=== PATIENT | female | born 1985 | race Caucasian/White ===

== ENCOUNTER 2025-07-20 13:05 | Inpatient (IN) | payer MEDICAID, OTHER ==
[~2025-07-20] VITALS: Ht 165.1 cm; Wt 98.0 kg
[2025-07-20 13:09] VITALS: O2SAT 99
[2025-07-20] MEDS: HALOPERIDOL LACTATE 5MG/ML VIAL IM ONE (13:28)
[2025-07-20] MEDS: DIPHENHYDRAMINE 50MG/ML VIAL IM ONE (13:28)
[2025-07-20] MEDS: LORAZEPAM 2MG/ML UD SYRINGE IM SCH (13:30)
[2025-07-20 14:26] LABS: HEMATOCRIT. 38.9 % (36.0-48.0); HEMOGLOBIN. 12.7 g/dL (12.0-16.0); MEAN PLATELET VOLUME 9.1 fl (7.4-10.4); PLATELET 270 x1000/uL (130-400); RED BLOOD CELL COUNT 4.18 mill/uL (4.2-5.4); RED CELL DISTRIBUTION WIDTH 13.1 % (11.6-14.6)
[2025-07-20 14:41] LABS: HCG SCREEN NEGATIVE
[2025-07-20 14:42] LABS: CREATININE 1.3 mg/dL (0.6-1.0)
[2025-07-20 14:43] LABS: ETHANOL BLOOD < 10 mg/dL (<10); PROTEIN TOTAL 7.6 g/dL (6.0-8.3); UREA NITROGEN BLOOD 12 mg/dL (9-23)
[2025-07-20 14:44] LABS: ASPARTATE AMINOTRANSFERASE 27 IU/L (<34); BILIRUBIN DIRECT 0.2 mg/dL (<=3.0)
[2025-07-20 14:45] LABS: BILIRUBIN TOTAL 0.7 mg/dL (0.1-1.0)
[2025-07-20 14:51] LABS: LYMPHOCYTES % MANUAL 6.0 % (20.0-60.0); MONOCYTES % MANUAL 8.0 % (2.0-8.0); NEUTROPHILS % MANUAL 86.0 % (45.0-75.0)
[2025-07-20 14:52] LABS: PLATELET ESTIMATE NORMAL
[2025-07-20] MEDS: AZITHROMYCIN 500MG/250ML 250 ML IV ONE (18:15)
[2025-07-20] MEDS: SODIUM CHLORIDE 0.9% (SEPSIS BOLUS) IV ONE (18:55)
[2025-07-20] MEDS: CEFTRIAXONE 1GM/50ML 50 ML IV ONE (19:01)
[2025-07-20 19:04] LABS: BASOPHILS % 0.2 % (0.0-2.0); EOSINOPHILS % 0.1 % (0.0-5.0); HEMATOCRIT. 39.3 % (36.0-48.0); HEMOGLOBIN. 12.8 g/dL (12.0-16.0); LYMPHOCYTES % 16.5 % (20.0-50.0); MEAN PLATELET VOLUME 8.9 fl (7.4-10.4); MONOCYTES % 7.5 % (2.0-8.0); NEUTROPHILS % 75.7 % (40.0-76.0); PLATELET 268 x1000/uL (130-400); RED BLOOD CELL COUNT 4.25 mill/uL (4.2-5.4); RED CELL DISTRIBUTION WIDTH 13.6 % (11.6-14.6)
[2025-07-20 19:07] LABS: CLARITY URINE CLOUDY (CLEAR); COLOR URINE DARK YELLOW (YELLOW); GLUCOSE URINE NEGATIVE (NEGATIVE); KETONES URINE 3+ (NEGATIVE); LEUKOCYTE ESTERASE URINE NEGATIVE (NEGATIVE); NITRITE URINE NEGATIVE (NEGATIVE); OCCULT BLOOD URINE TRACE (NEGATIVE); PH URINE 5.0 (4.5-8.0); PROTEIN URINE 1+ (NEGATIVE); SPECIFIC GRAVITY URINE 1.031 (1.005-1.030); UROBILINOGEN URINE 1.0 E.U./dL (0.2-1.0)
[2025-07-20 19:12] LABS: *AMPHETAMINES SCREEN URINE NEGATIVE (NEGATIVE); *BARBITURATES SCREEN URINE NEGATIVE (NEGATIVE); *BENZODIAZEPINES SCREEN URINE NEGATIVE (NEGATIVE); *COCAINE SCREEN URINE NEGATIVE (NEGATIVE); CANNABINOID URINE SCREEN NEGATIVE (NEGATIVE); ECSTASY MDMA SCREEN URINE NEGATIVE (NEGATIVE); METHADONE URINE SCREEN NEGATIVE (NEGATIVE); OPIATES URINE SCREEN NEGATIVE (NEGATIVE); PHENCYCLIDINE URINE SCREEN NEGATIVE (NEGATIVE)
[2025-07-20 19:20] LABS: CREATININE 1.1 mg/dL (0.6-1.0); UREA NITROGEN BLOOD 12 mg/dL (9-23)
[2025-07-20 19:21] LABS: PROTEIN TOTAL 7.2 g/dL (6.0-8.3)
[2025-07-20 19:22] LABS: ASPARTATE AMINOTRANSFERASE 39 IU/L (<34); BILIRUBIN DIRECT 0.2 mg/dL (<=3.0); BILIRUBIN TOTAL 0.7 mg/dL (0.1-1.0)
[2025-07-20 19:26] LABS: INR 1.0
[2025-07-20 19:33] LABS: TROPONIN I HIGH SENSITIVITY 121 ng/L (3.0-34)
[2025-07-20 20:44] LABS: BACTERIA URINE 4+; RBC URINE 0-2 /hpf (0-2); SQUAMOUS EPITHELIAL CELL URINE 2+ /lpf (RARE/1+)
[2025-07-20 20:45] LABS: WBC URINE 0-2 /hpf (0-2)
[2025-07-20 23:04] VITALS: BP 98/64; PULSE 70; RESP 16; TEMP 37.1408
[2025-07-20] MEDS ORDERED: ACETAMINOPHEN 325MG TABLET PO PRN (23:30)
[2025-07-20] MEDS ORDERED: LORAZEPAM 2MG/ML UD SYRINGE IV PRN (23:30)
[2025-07-21] VITALS: BP 95/54; PULSE 66; RESP 18; TEMP 36.6; O2SAT 100
[2025-07-21 04:00] VITALS: BP 96/59; PULSE 90; RESP 16; TEMP 36.7; O2SAT 98
[2025-07-21 07:44] LABS: PLATELET 243 x1000/uL (130-400); RED BLOOD CELL COUNT 3.61 mill/uL (4.2-5.4); RED CELL DISTRIBUTION WIDTH 13.3 % (11.6-14.6)
[2025-07-21 07:56] LABS: UREA NITROGEN BLOOD 11 mg/dL (9-23)
[2025-07-21 08:00] VITALS: BP 127/75; PULSE 72; RESP 16; TEMP 36.6; O2SAT 99
[2025-07-21 08:07] LABS: CREATININE 0.7 mg/dL (0.6-1.0)
[2025-07-21 12:00] VITALS: BP 110/60; PULSE 91; RESP 16; TEMP 36.7; O2SAT 98
[2025-07-21 16:00] VITALS: BP 113/70; PULSE 75; RESP 16; TEMP 36.5; O2SAT 100
[2025-07-21 20:00] VITALS: BP 108/60; PULSE 75; RESP 18; TEMP 36.7; O2SAT 95
[2025-07-21] MEDS ORDERED: ACETAMINOPHEN 325MG TABLET PO PRN (20:15)
[2025-07-21] MEDS ORDERED: ONDANSETRON HCL 4MG/2ML INJ IV PRN (20:15)
[2025-07-22] VITALS: BP 109/63; PULSE 70; RESP 18; TEMP 37.1; O2SAT 95
[2025-07-22 04:00] VITALS: BP 101/58; PULSE 115; PULSE 65; RESP 18; TEMP 36.8; O2SAT 96
[2025-07-22] MEDS: PANTOPRAZOLE SODIUM 40 MG/VIAL IV SCH (04:54)
[2025-07-22 08:00] VITALS: BP 110/63; PULSE 83; RESP 18; TEMP 36.6; O2SAT 95
[2025-07-22 08:19] LABS: BASOPHILS % 0.4 % (0.0-2.0); EOSINOPHILS % 1.5 % (0.0-5.0); HEMATOCRIT. 33.5 % (36.0-48.0); HEMOGLOBIN. 11.2 g/dL (12.0-16.0); LYMPHOCYTES % 33.8 % (20.0-50.0); MEAN PLATELET VOLUME 9.5 fl (7.4-10.4); MONOCYTES % 8.4 % (2.0-8.0); NEUTROPHILS % 55.9 % (40.0-76.0); PLATELET 239 x1000/uL (130-400); RED BLOOD CELL COUNT 3.59 mill/uL (4.2-5.4); RED CELL DISTRIBUTION WIDTH 13.3 % (11.6-14.6)
[2025-07-22 08:33] LABS: CREATININE 0.7 mg/dL (0.6-1.0)
[2025-07-22 08:34] LABS: UREA NITROGEN BLOOD 10 mg/dL (9-23)
[2025-07-22] MEDS: ASPIRIN 81MG TABLET PO SCH (11:55)
[2025-07-22] MEDS: LAMOTRIGINE 150MG TABLET PO SCH (11:56)
[2025-07-22 12:00] VITALS: BP 109/68; PULSE 76; RESP 17; TEMP 36.9; O2SAT 96
[2025-07-22 16:00] VITALS: BP 120/65; PULSE 80; RESP 17; TEMP 35.6; O2SAT 95
[2025-07-22 20:00] VITALS: BP 113/63; PULSE 66; RESP 17; TEMP 37; O2SAT 97
[2025-07-23] VITALS: BP 115/72; PULSE 68; RESP 16; TEMP 36.9; O2SAT 99
[2025-07-23 04:00] VITALS: BP 106/63; PULSE 63; RESP 16; TEMP 36.8; O2SAT 97
[2025-07-23 08:00] VITALS: BP 108/73; PULSE 67; RESP 17; TEMP 36.6; O2SAT 97
[2025-07-23 12:00] VITALS: BP 111/85; PULSE 75; RESP 18; TEMP 36.9; O2SAT 99
[2025-07-23 12:52] VITALS: BP 111/85; PULSE 76; RESP 18; TEMP 98.5
== END 2025-07-23 13:15 | disposition home or self-care (01) | DRG 426 ==
LOC: EDBD 13:05 → ER 13:05 → 5WST 20:40 → EDBEDREQTM 20:45 → EDBEDREQ 20:45 → ENRESERV 21:15 → 5WST 23:06
PROVIDERS: ADMIT Internal Medicine; ATTEND Internal Medicine
DX: E87.0 Hyperosmolality and hypernatremia (principal); G93.41 Metabolic encephalopathy; I21.A1 Myocardial infarction type 2; Z78.1 Physical restraint status; N17.9 Acute kidney failure, unspecified; F23 Brief psychotic disorder; F31.9 Bipolar disorder, unspecified; D72.829 Elevated white blood cell count, unspecified; Z79.899 Other long term (current) drug therapy
CPT/HCPCS: 36415; 71045; 80048; 80076; 80305; 80320; 81003; 83605; 83735; 83880; 84145; 84484; 84703; 85025; 85027; 93005; 93306; 96365; 96367; 96372; 99285; J0456; J0696; J1200; J1630; J2060; J2470; J7030; G0480